=== PATIENT | male | born 1970 | race Caucasian/White ===

== ENCOUNTER 2020-07-29 14:56 | Inpatient (IN) ==
[2020-07-29] MEDS ORDERED: Ondansetron 4 MG/2 ML VIAL IVP ONE (15:03)
[2020-07-29] MEDS ORDERED: 0.9 % Sodium Chloride 1,000 ML IVC ONE (15:03)
[2020-07-29] MEDS ORDERED: Pantoprazole 40 MG VIAL IVP ONE (15:03)
[2020-07-29] MEDS ORDERED: cefTRIAXone 1,000 MG in Water for inj. (sterile) 10 ML IVP ONE (15:03)
[2020-07-29] MEDS ORDERED: Octreotide 50 MCG/ML INJ IVP ONE (15:03)
[2020-07-29 16:04] LABS: Basophils % 0.3 %; Eosinophils % 0.3 %; Hematocrit 23.4 % (37.5-50.1); Hemoglobin 7.3 g/dL (12.9-16.9); Immature Granulocytes % 0.5 % (0-4); Lymphocytes # 2.5 K/mcL (0.6-4.6); Lymphocytes % 18.9 %; Mean Corpuscular HGB Conc 31.2 g/dL (31.6-35.5); Mean Corpuscular Hemoglobin 26.4 pg (28.0-33.3); Mean Corpuscular Volume 84.5 fL (83.0-100.0); Mean Platelet Volume 10.4 fL (9.4-12.4); Monocytes # 0.4 K/mcL (0.0-1.3); Monocytes % 3.1 %; Neutrophils # 10.1 K/mcL (1.6-8.9); Platelet Count 187 K/mcL (140-400); Red Blood Count 2.77 M/mcL (4.19-5.50); Red Cell Distribution Width 16.6 % (11.5-14.5); Segmented Neutrophils % 76.9 %; White Blood Count 13.1 K/mcL (4.3-11.1)
[2020-07-29 16:13] LABS: Activated Partial Thrombo Time 36.7 Seconds (26.0-36.0); INR 1.3; Prothrombin Time 15.1 Seconds (9.4-12.1)
[2020-07-29] MEDS ORDERED: Metoclopramide 10 MG/2 ML VIAL IVP ONE (16:13)
[2020-07-29 16:29] LABS: Alanine Aminotransferase 13 Units/L (7-52); Albumin 3.4 g/dL (3.5-5.7); Albumin/Globulin Ratio 1.5 (1.1-2.2); Alkaline Phosphatase 52 Units/L (34-104); Aspartate Amino Transferase 22 Units/L (13-39); BUN/Creatinine Ratio 31 (6-26); Bilirubin,Total 1.2 mg/dL (0.3-1.0); Blood Urea Nitrogen 28 mg/dL (6-20); Calcium 8.9 mg/dL (8.6-10.3); Carbon Dioxide 27 mEq/L (23-29); Chloride 103 mEq/L (98-107); Globulin 2.3 g/dL (2.4-3.5); Glucose 156 mg/dL (70-105); Lipase 4 Units/L (11-82); Magnesium 1.4 mg/dL (1.6-2.6); Osmolality,Calculated 293 (280-300); Potassium 7.7 mEq/L (3.5-5.1); Sodium 137 mEq/L (136-145); Total Protein 5.7 g/dL (6.4-8.9); Troponin I 0.03 ng/mL (< 0.04); eGFR For African Americans > 60 (> 60); eGFR For Non-African Americans > 60 (> 60)
[2020-07-29] MEDS ORDERED: Insulin Human Regular 10 UNIT in 0.9 % Sodium Chloride 10 ML IV ONE (16:32)
[2020-07-29] MEDS ORDERED: Sodium Bicarbonate 50 MEQ/50 ML VIAL IVP ONE (16:32)
[2020-07-29] MEDS ORDERED: *HR* Dextrose 50 % in Water (Vial) 50 ML VIAL IVP ONE (16:32)
[2020-07-29] MEDS ORDERED: Calcium Gluconate 1gm/50mL BAG IVPB ONE (16:35)
[2020-07-29] MEDS ORDERED: 0.9 % Sodium Chloride 250 ML ONE ×2 (17:04→18:52)
[2020-07-29] MEDS ORDERED: *HR* Etomidate 40 MG/20 ML VIAL IVP ONE ×2 (18:36)
[2020-07-29] MEDS ORDERED: *HR* Rocuronium Bromide 50 MG/5 ML VIAL ONE (18:36)
[2020-07-29] MEDS ORDERED: *HR* FentaNYL (PF) 100 MCG/2 ML VIAL ONE (18:36)
[2020-07-29] MEDS ORDERED: Dexamethasone 4 MG/ML VIAL ONE (18:36)
[2020-07-29] MEDS ORDERED: Ondansetron 4 MG/2 ML VIAL ONE (18:36)
[2020-07-29] MEDS ORDERED: Lidocaine -MPF 2% 2 ML VIAL ONE (18:36)
[2020-07-29] MEDS ORDERED: *HR* Succinylcholine 200 MG/10 ML VIAL IVP ONE (18:36)
[2020-07-29] MEDS ORDERED: Naloxone 0.4 MG/ML INJ IVP PRN (18:44)
[2020-07-29] MEDS ORDERED: EPHEDrine 50 MG/ML VIAL ONE (19:06)
[2020-07-29] MEDS: Octreotide 400 MCG in 0.9 % Sodium Chloride 100 ML IVC SCH (19:14)
[2020-07-29 19:25] LABS: BUN/Creatinine Ratio 35 (6-26); Blood Urea Nitrogen 28 mg/dL (6-20); Calcium 7.9 mg/dL (8.6-10.3); Carbon Dioxide 30 mEq/L (23-29); Chloride 108 mEq/L (98-107); Glucose 147 mg/dL (70-105); Osmolality,Calculated 302 (280-300); Potassium 3.7 mEq/L (3.5-5.1); Sodium 142 mEq/L (136-145); eGFR For African Americans > 60 (> 60); eGFR For Non-African Americans > 60 (> 60)
[2020-07-29 19:43] LABS: VBG Ionized Calcium 1.11 mmol/L (1.15-1.35)
[2020-07-29 19:47] LABS: Hematocrit 21.4 % (37.5-50.1); Hemoglobin 6.9 g/dL (12.9-16.9)
[2020-07-29 20:00] LABS: BUN/Creatinine Ratio 35 (6-26); Blood Urea Nitrogen 29 mg/dL (6-20); Calcium 8.2 mg/dL (8.6-10.3); Carbon Dioxide 32 mEq/L (23-29); Chloride 108 mEq/L (98-107); Glucose 132 mg/dL (70-105); Magnesium 1.5 mg/dL (1.6-2.6); Osmolality,Calculated 302 (280-300); Potassium 3.7 mEq/L (3.5-5.1); Sodium 142 mEq/L (136-145); eGFR For African Americans > 60 (> 60); eGFR For Non-African Americans > 60 (> 60)
[2020-07-29 20:34] LABS: Hepatitis B Surface Antigen Nonreactive (Nonreactive)
[2020-07-29 20:37] LABS: Adenovirus Not Detected (Not Detect); Bordetella Pertussis Not Detected (Not Detect); Chlamydophila pneumoniae Not Detected (Not Detect); Coronavirus 229E Not Detected (Not Detect); Coronavirus HKU1 Not Detected (Not Detect); Coronavirus NL63 Not Detected (Not Detect); Coronavirus OC43 Not Detected (Not Detect); Human Metapneumovirus Not Detected (Not Detect); Human Rhinovirus/Enterovirus Not Detected (Not Detect); Influenza A Subtype 2009 H1 Not Detected (Not Detect); Influenza B Not Detected (Not Detect); Mycoplasma pneumoniae Not Detected (Not Detect); Parainfluenza Virus 1 Not Detected (Not Detect); Parainfluenza Virus 2 Not Detected (Not Detect); Parainfluenza Virus 3 Not Detected (Not Detect); Parainfluenza Virus 4 Not Detected (Not Detect); Respiratory Syncytial Virus Not Detected (Not Detect); SARS-CoV-2 Not Detected (Not Detect)
[2020-07-29 21:03] LABS: Hepatitis B Core IgM Nonreactive (Nonreactive)
[2020-07-29 21:04] LABS: Hepatitis A Antibody IgM Nonreactive (Nonreactive)
[2020-07-29] MEDS: Pantoprazole 40 MG in 0.9 % Sodium Chloride Mini Bag 100 ML IVC SCH (21:37)
[2020-07-29 21:49] LABS: Hematocrit 24.5 % (37.5-50.1)
[2020-07-30] MEDS: Octreotide 400 MCG in 0.9 % Sodium Chloride 100 ML IVC SCH ×3 (00:33→18:02)
[2020-07-30 00:42] LABS: Hematocrit 24.1 % (37.5-50.1); Hemoglobin 7.9 g/dL (12.9-16.9)
[2020-07-30] MEDS: Pantoprazole 40 MG in 0.9 % Sodium Chloride Mini Bag 100 ML IVC SCH ×5 (01:02→20:26)
[2020-07-30 04:29] LABS: Hepatitis C Virus Antibody Reactive (Nonreactive)
[2020-07-30 04:34] LABS: Basophils % 0.1 %
[2020-07-30 04:36] LABS: Hematocrit 23.3 % (37.5-50.1); Hemoglobin 7.7 g/dL (12.9-16.9); Immature Granulocytes % 0.7 % (0-4); Immature Platelets 4.7 % (1.1-6.1); Lymphocytes # 1.2 K/mcL (0.6-4.6); Lymphocytes % 16.4 %; Mean Corpuscular Hemoglobin 27.7 pg (28.0-33.3); Mean Corpuscular Volume 83.8 fL (83.0-100.0); Monocytes # 0.2 K/mcL (0.0-1.3); Monocytes % 2.5 %; Neutrophils # 5.7 K/mcL (1.6-8.9); Nucleated Red Blood Cells 0.3 /100 WBC (0); Red Blood Count 2.78 M/mcL (4.19-5.50); Red Cell Distribution Width 15.4 % (11.5-14.5); Segmented Neutrophils % 80.3 %; White Blood Count 7.1 K/mcL (4.3-11.1)
[2020-07-30 04:47] LABS: Platelet Count 69 K/mcL (140-400)
[2020-07-30 04:53] LABS: Alanine Aminotransferase 16 Units/L (7-52); Albumin 2.8 g/dL (3.5-5.7); Albumin/Globulin Ratio 1.4 (1.1-2.2); Alkaline Phosphatase 38 Units/L (34-104); Aspartate Amino Transferase 35 Units/L (13-39); BUN/Creatinine Ratio 37 (6-26); Bilirubin,Direct 0.3 mg/dL (0.0-0.2); Bilirubin,Indirect 0.8 mg/dL (0.0-1.0); Bilirubin,Total 1.1 mg/dL (0.3-1.0); Blood Urea Nitrogen 28 mg/dL (6-20); Calcium 7.7 mg/dL (8.6-10.3); Carbon Dioxide 27 mEq/L (23-29); Chloride 110 mEq/L (98-107); Glucose 155 mg/dL (70-105); Magnesium 1.8 mg/dL (1.6-2.6); Osmolality,Calculated 301 (280-300); Phosphorous 4.1 mg/dL (2.7-4.5); Potassium 4.3 mEq/L (3.5-5.1); Sodium 141 mEq/L (136-145); Total Protein 4.8 g/dL (6.4-8.9); eGFR For African Americans > 60 (> 60); eGFR For Non-African Americans > 60 (> 60)
[2020-07-30 05:18] LABS: INR 1.4
[2020-07-30] MEDS: cefTRIAXone 2,000 MG in Water for inj. (sterile) 20 ML IVP SCH (08:11)
[2020-07-30] MEDS ORDERED: *HR* Buprenorphine HCl 8 MG TAB.SUBL SL SCH (10:45)
[2020-07-30 13:47] LABS: Hematocrit 21.5 % (37.5-50.1); Hemoglobin 7.1 g/dL (12.9-16.9)
[2020-07-30] MEDS ORDERED: Furosemide 20 MG/2 ML VIAL IVP ONE ×2 (14:13→16:30)
[2020-07-30] MEDS ORDERED: 0.9 % Sodium Chloride 250 ML ONE ×3 (14:14→22:19)
[2020-07-30] MEDS ORDERED: Calcium Gluconate 1gm/50mL 1 GM/50 ML BAG IVPB ONE (16:16)
[2020-07-30] MEDS ORDERED: traZODone 50 MG TABLET PO ONE (20:38)
[2020-07-30 22:30] LABS: Hemoglobin 7.1 g/dL (12.9-16.9)
[2020-07-31] MEDS: Pantoprazole 40 MG in 0.9 % Sodium Chloride Mini Bag 100 ML IVC SCH ×2 (01:09→06:00)
[2020-07-31] MEDS: Octreotide 400 MCG in 0.9 % Sodium Chloride 100 ML IVC SCH (02:09)
[2020-07-31] MEDS ORDERED: Norepinephrine 4 MG/254 ML IV.SOLN IVC SCH (02:30)
[2020-07-31 04:43] LABS: VBG Ionized Calcium 1.06 mmol/L (1.15-1.35)
[2020-07-31 04:47] LABS: Hematocrit 20.6 % (37.5-50.1); Hemoglobin 6.6 g/dL (12.9-16.9); Immature Platelets 5.2 % (1.1-6.1); Mean Corpuscular Hemoglobin 27.7 pg (28.0-33.3); Mean Corpuscular Volume 86.6 fL (83.0-100.0); Mean Platelet Volume 9.5 fL (9.4-12.4); Red Blood Count 2.38 M/mcL (4.19-5.50); Red Cell Distribution Width 15.5 % (11.5-14.5); White Blood Count 4.9 K/mcL (4.3-11.1)
[2020-07-31 05:03] LABS: INR 1.2; Prothrombin Time 14.1 Seconds (9.4-12.1)
[2020-07-31 05:04] LABS: BUN/Creatinine Ratio 35 (6-26); Blood Urea Nitrogen 30 mg/dL (6-20); Calcium 7.7 mg/dL (8.6-10.3); Carbon Dioxide 31 mEq/L (23-29); Chloride 106 mEq/L (98-107); Glucose 118 mg/dL (70-105); Magnesium 1.8 mg/dL (1.6-2.6); Osmolality,Calculated 297 (280-300); Phosphorous 2.4 mg/dL (2.7-4.5); Potassium 3.6 mEq/L (3.5-5.1); Sodium 140 mEq/L (136-145); eGFR For African Americans > 60 (> 60); eGFR For Non-African Americans > 60 (> 60)
[2020-07-31] MEDS ORDERED: 0.9 % Sodium Chloride 250 ML ONE (05:29)
[2020-07-31] MEDS: cefTRIAXone 2,000 MG in Water for inj. (sterile) 20 ML IVP SCH (07:23)
[2020-07-31 08:16] VITALS: BP 87/59
== END 2020-07-31 09:32 | disposition left against medical advice (07) ==
LOC: EMEROOARM 14:56 → ICNU 18:47
PROVIDERS: ADMIT Internal Medicine; ATTEND Internal Medicine